=== PATIENT | male | born 1970 | race Asian ===

== ENCOUNTER 2024-02-15 16:54 | Inpatient (IN) | payer MEDICAID ==
[~2024-02-15] VITALS: Ht 162.6 cm; Wt 88.2 kg
[2024-02-15] MEDS ORDERED: COLC-3 PO (17:10)
[2024-02-15] MEDS ORDERED: ATOR10TA PO (17:10)
[2024-02-15] MEDS ORDERED: SACU1TAB7 PO (17:10)
[2024-02-15] MEDS ORDERED: ALLO-97 PO (17:10)
[2024-02-15] MEDS ORDERED: DULA3PEN SQ (17:10)
[2024-02-15] MEDS ORDERED: METO-325 PO (17:10)
[2024-02-15] MEDS ORDERED: LISI-893 PO (17:10)
[2024-02-15] MEDS ORDERED: ISOS30TA92 PO (17:10)
[2024-02-15] MEDS ORDERED: METF-1211 PO (17:10)
[2024-02-15] MEDS ORDERED: INSU100I26 SQ (17:10)
[2024-02-15] MEDS: METOPROLOL TARTRATE 5 MG/5 ML VIAL IVP SCH (17:29)
[2024-02-15] MEDS: ASPIRIN 325 MG TABLET PO ONE (17:29)
[2024-02-15] MEDS: NITROGLYCERIN 0.4 MG SUBLINGUAL TABLET #25 SL ONE (17:30)
[2024-02-15 18:10] LABS: CALCIUM, TOTAL 8.6 mg/dL (8.8-10.5); CREATININE 2.01 mg/dL (0.60-1.30)
[2024-02-15 18:12] LABS: BASOPHILS % (AUTO) 0.4 % (0.0-2.0); EOSINOPHILS % (AUTO) 5.1 % (1.0-6.0); HEMATOCRIT 47.1 % (41-53); HEMOGLOBIN 16.2 g/dL (13.5-17.5); LYMPHOCYTES # (AUTO) 1.9 K/uL (1.0-4.8); LYMPHOCYTES % (AUTO) 33.8 % (22.0-44.0); MEAN CORPUSCULAR HEMOGLOBIN 28.3 pg (26.0-34.0); MEAN CORPUSCULAR HGB CONC 34.5 G/dL (31.0-37.0); MEAN CORPUSCULAR VOLUME 82 fL (80-100); MONOCYTES # (AUTO) 0.4 K/uL (0.1-1.0); MONOCYTES % (AUTO) 7.4 % (2.0-9.0); NEUTROPHILS % (AUTO) 53.3 % (40.0-70.0); PLATELET COUNT (AUTO) 234 K/uL (150-450); RED BLOOD CELL COUNT(AUTO) 5.75 MIL/uL (4.50-5.90); RED CELL DISTRIBUTION WIDTH 15.4 % (11.5-14.5); WHITE BLOOD COUNT (AUTO) 5.6 K/uL (4.5-11.0)
[2024-02-15 18:18] LABS: INR 0.9 (0.9-1.1); PROTHROMBIN TIME 9.3 SEC (9.4-11.6)
[2024-02-15 18:19] LABS: TROPONIN I-HIGH SENSITIVITY 14 ng/L (<76)
[2024-02-15] MEDS ORDERED: ONDANSETRON HCL 4 MG/2 ML VIAL IVP PRN (19:15)
[2024-02-15] MEDS: AmLODIPine BESYLATE 10 MG TABLET PO ONE (19:20)
[2024-02-15] MEDS: NITROGLYCERIN 2% (1 GM=INCH) OINTMENT PACKET TP ONE (19:21)
[2024-02-15] MEDS: NITROGLYCERIN 2% (1 GM=INCH) OINTMENT PACKET TP SCH ×2 (20:05→23:08)
[2024-02-15] MEDS: LABETALOL HCL 100 MG TABLET PO SCH (20:24)
[2024-02-15] MEDS: HydrALAZINE HCL 20 MG/ML VIAL IVP PRN (20:34)
[2024-02-15 21:32] LABS: BASOPHILS % (AUTO) 0.4 % (0.0-2.0); EOSINOPHILS % (AUTO) 4.8 % (1.0-6.0); HEMOGLOBIN 14.7 g/dL (13.5-17.5); LYMPHOCYTES # (AUTO) 1.9 K/uL (1.0-4.8); LYMPHOCYTES % (AUTO) 27.8 % (22.0-44.0); MEAN CORPUSCULAR HEMOGLOBIN 27.9 pg (26.0-34.0); MEAN CORPUSCULAR HGB CONC 34.2 G/dL (31.0-37.0); MEAN CORPUSCULAR VOLUME 82 fL (80-100); MONOCYTES # (AUTO) 0.6 K/uL (0.1-1.0); MONOCYTES % (AUTO) 7.9 % (2.0-9.0); NEUTROPHILS # (AUTO) 4.1 K/uL (1.8-7.7); NEUTROPHILS % (AUTO) 59.1 % (40.0-70.0); PLATELET COUNT (AUTO) 245 K/uL (150-450); RED BLOOD CELL COUNT(AUTO) 5.28 MIL/uL (4.50-5.90)
[2024-02-15 21:38] LABS: CALCIUM, TOTAL 8.1 mg/dL (8.8-10.5); CREATININE 1.73 mg/dL (0.60-1.30); POTASSIUM 3.1 mmol/L (3.5-5.1)
[2024-02-15 21:49] LABS: TROPONIN I-HIGH SENSITIVITY 11 ng/L (<76)
[2024-02-15] MEDS ORDERED: DEXTROSE 50%-WATER 25 GM/50 ML SYRINGE IVP PRN (22:45)
[2024-02-15] MEDS: HEPARIN SODIUM,PORCINE 5,000 UNITS/ML VIAL SQ SCH (23:08)
[2024-02-15] MEDS: ATORVASTATIN CALCIUM 40 MG TABLET PO ONE (23:37)
[2024-02-16] VITALS (7 sets, daily range): BP systolic 109–163; BP diastolic 76–95; PULSE 84–93; RESP 18; TEMP 97.5–98; O2SAT 94–98
[2024-02-16] MEDS: ACETAMINOPHEN 325 MG TABLET PO PRN (06:15)
[2024-02-16] MEDS: INSULIN LISPRO 100 UNITS/ML SQ PRN (06:17)
[2024-02-16 07:30] LABS: PH,URINE DRUG SCREEN 6.5 (5.0-8.0)
[2024-02-16 07:36] LABS: BASOPHILS % (AUTO) 0.5 % (0.0-2.0); EOSINOPHILS % (AUTO) 4.7 % (1.0-6.0); HEMOGLOBIN 13.7 g/dL (13.5-17.5); LYMPHOCYTES # (AUTO) 1.4 K/uL (1.0-4.8); LYMPHOCYTES % (AUTO) 24.8 % (22.0-44.0); MEAN CORPUSCULAR HEMOGLOBIN 28.4 pg (26.0-34.0); MEAN CORPUSCULAR HGB CONC 35.2 G/dL (31.0-37.0); MEAN CORPUSCULAR VOLUME 81 fL (80-100); MONOCYTES # (AUTO) 0.4 K/uL (0.1-1.0); MONOCYTES % (AUTO) 7.4 % (2.0-9.0); NEUTROPHILS # (AUTO) 3.5 K/uL (1.8-7.7); NEUTROPHILS % (AUTO) 62.6 % (40.0-70.0); PLATELET COUNT (AUTO) 220 K/uL (150-450); RED BLOOD CELL COUNT(AUTO) 4.83 MIL/uL (4.50-5.90); RED CELL DISTRIBUTION WIDTH 15.3 % (11.5-14.5); WHITE BLOOD COUNT (AUTO) 5.7 K/uL (4.5-11.0)
[2024-02-16 07:38] LABS: ALCOHOL, URINE DRUG SCREEN NEGATIVE (NEGATIVE); AMPHET/METH SCREEN,URINE NEGATIVE (NEGATIVE); BARBITURATE SCREEN, URINE NEGATIVE (NEGATIVE); BENZODIAZEPINES SCREEN,URINE NEGATIVE (NEGATIVE); CANNABINOID SCREEN,URINE NEGATIVE (NEGATIVE); COCAINE SCREEN,URINE NEGATIVE (NEGATIVE); METHADONE SCREEN, URINE NEGATIVE (NEGATIVE); OPIATE SCREEN,URINE NEGATIVE (NEGATIVE); PHENCYCLIDINE SCREEN,URINE NEGATIVE (NEGATIVE)
[2024-02-16 07:48] LABS: CREATININE 1.68 mg/dL (0.60-1.30); MAGNESIUM 1.9 mg/dL (1.80-2.40)
[2024-02-16 08:03] LABS: POTASSIUM 2.8 mmol/L (3.5-5.1)
[2024-02-16 08:10] LABS: PROTEIN,URINE RANDOM 1125 mg/dL (0-11.9)
[2024-02-16] MEDS: POTASSIUM CHLORIDE 10 MEQ ER TABLET PO ONE ×3 (09:26→23:57)
[2024-02-16] MEDS: ISOSORBIDE MONONITRATE 30 MG ER TABLET PO SCH (11:47)
[2024-02-16 13:47] LABS: TROPONIN I-HIGH SENSITIVITY 10 ng/L (<76)
[2024-02-16 17:17] LABS: POTASSIUM,URINE RANDOM 19 mmol/L (12-75); SODIUM,URINE RANDOM 42 mmol/l (20-110)
[2024-02-16 17:35] LABS: GLUCOMETER DEV NAME(LOC) 5N.2C; GLUCOSE,POINT OF CARE 209 MG/DL (70-110)
[2024-02-16 17:35] LABS: GLUCOMETER DEV NAME(LOC) 5N.2C; GLUCOSE,POINT OF CARE 263 MG/DL (70-110)
[2024-02-16 17:35] LABS: GLUCOMETER DEV NAME(LOC) 5N.2C; GLUCOSE,POINT OF CARE 283 MG/DL (70-110)
[2024-02-16 17:57] LABS: PROTEIN,URINE RANDOM 857 mg/dL (0-11.9)
[2024-02-16] MEDS: CARVEDILOL 12.5 MG TABLET PO SCH (20:29)
[2024-02-16] MEDS: ATORVASTATIN CALCIUM 40 MG TABLET PO SCH (20:30)
[2024-02-16] MEDS: SACUBITRIL/VALSARTAN 49-51 MG TABLET PO SCH (20:30)
[2024-02-16] MEDS: ASPIRIN 81 MG CHEWABLE TABLET PO SCH (20:31)
[2024-02-16] MEDS: INSULIN GLARGINE,HUM.REC.ANLOG 100 UNITS/ML SQ SCH (20:33)
[2024-02-17] VITALS (8 sets, daily range): BP systolic 138–164; BP diastolic 85–105; PULSE 85–94; RESP 17–18; TEMP 97.8–98.4; O2SAT 95–98
[2024-02-17 05:06] LABS: GLUCOMETER DEV NAME(LOC) 5S.1C; GLUCOSE,POINT OF CARE 293 MG/DL (70-110)
[2024-02-17 07:20] LABS: HEMOGLOBIN A1C 10.3 % (3.8-5.6)
[2024-02-17 07:39] LABS: CREATININE 1.85 mg/dL (0.60-1.30); POTASSIUM 3.3 mmol/L (3.5-5.1)
[2024-02-17 07:43] LABS: CALCIUM, TOTAL 8.6 mg/dL (8.8-10.5)
[2024-02-17 07:46] LABS: GLUCOMETER DEV NAME(LOC) 5S.1C; GLUCOSE,POINT OF CARE 218 MG/DL (70-110)
[2024-02-17] MEDS: HYDROmorphone HCL 2 MG/ML SYRINGE IVP PRN ×3 (07:49→19:05)
[2024-02-17] MEDS: OxyCODONE HCL/ACETAMINOPHEN 5-325 MG TABLET PO PRN (08:19)
[2024-02-17] MEDS: DAPAGLIFLOZIN PROPANEDIOL 5 MG TABLET PO SCH (08:19)
[2024-02-17] MEDS: CARVEDILOL 12.5 MG TABLET PO ONE (11:46)
[2024-02-17] MEDS: POTASSIUM CHLORIDE 20 MEQ ER TABLET PO ONE (14:33)
[2024-02-17 15:46] LABS: GLUCOMETER DEV NAME(LOC) 5S.1C; GLUCOSE,POINT OF CARE 214 MG/DL (70-110)
[2024-02-17] MEDS ORDERED: OxyCODONE HCL/ACETAMINOPHEN 5-325 MG TABLET PO PRN (18:53)
[2024-02-17 20:01] LABS: GLUCOMETER DEV NAME(LOC) 5S.1C; GLUCOSE,POINT OF CARE 191 MG/DL (70-110)
[2024-02-17] MEDS: CARVEDILOL 25 MG TABLET PO SCH (20:25)
[2024-02-17] MEDS: INSULIN GLARGINE,HUM.REC.ANLOG 100 UNITS/ML SQ SCH (20:27)
[2024-02-18 00:32] VITALS: BP 143/95; PULSE 91; RESP 17; TEMP 97.9; O2SAT 95
[2024-02-18 03:31] LABS: GLUCOMETER DEV NAME(LOC) 5N.2C; GLUCOSE,POINT OF CARE 185 MG/DL (70-110)
[2024-02-18 04:14] VITALS: BP 140/81; PULSE 89; RESP 18; TEMP 97.6; O2SAT 96
[2024-02-18 07:07] LABS: BASOPHILS % (AUTO) 0.5 % (0.0-2.0); EOSINOPHILS % (AUTO) 7.3 % (1.0-6.0); HEMATOCRIT 38.3 % (41-53); LYMPHOCYTES # (AUTO) 1.4 K/uL (1.0-4.8); MEAN CORPUSCULAR HEMOGLOBIN 28.2 pg (26.0-34.0); MEAN CORPUSCULAR HGB CONC 33.9 G/dL (31.0-37.0); MEAN CORPUSCULAR VOLUME 83 fL (80-100); MONOCYTES # (AUTO) 0.4 K/uL (0.1-1.0); MONOCYTES % (AUTO) 9.2 % (2.0-9.0); NEUTROPHILS # (AUTO) 1.9 K/uL (1.8-7.7); PLATELET COUNT (AUTO) 194 K/uL (150-450); RED BLOOD CELL COUNT(AUTO) 4.62 MIL/uL (4.50-5.90); RED CELL DISTRIBUTION WIDTH 15.2 % (11.5-14.5)
[2024-02-18 07:08] LABS: CALCIUM, TOTAL 8.3 mg/dL (8.8-10.5); CREATININE 1.83 mg/dL (0.60-1.30); MAGNESIUM 2.2 mg/dL (1.80-2.40); POTASSIUM 3.3 mmol/L (3.5-5.1)
[2024-02-18] MEDS: ISOSORBIDE MONONITRATE 60 MG ER TABLET PO SCH (08:14)
[2024-02-18 08:26] VITALS: BP 167/94; PULSE 92; RESP 18; TEMP 97.7; O2SAT 97
[2024-02-18 11:46] LABS: GLUCOMETER DEV NAME(LOC) 5S.1C; GLUCOSE,POINT OF CARE 209 MG/DL (70-110)
[2024-02-18 11:50] LABS: GLUCOMETER DEV NAME(LOC) 5N.2C; GLUCOSE,POINT OF CARE 132 MG/DL (70-110)
[2024-02-18] MEDS: POTASSIUM CHLORIDE 20 MEQ ER TABLET PO ONE (11:54)
[2024-02-18 11:55] VITALS: BP 152/100; PULSE 86; RESP 18; TEMP 97.2; O2SAT 96
[2024-02-18 12:06] LABS: IGA (IFE) 299 mg/dL (90-386); IGM (IMMUNOFIXATION) 148 mg/dL (20-172)
[2024-02-18] MEDS ORDERED: DAPA5TAB6 PO (14:30)
[2024-02-18] MEDS ORDERED: ATOR40TA71 PO (14:30)
[2024-02-18] MEDS ORDERED: ASPI-1450 PO (14:30)
[2024-02-18] MEDS ORDERED: ISOS60TA77 PO (14:30)
[2024-02-18] MEDS ORDERED: CARV25 PO (14:30)
[2024-02-19 01:07] LABS: CREATININE, URINE (mALB) 75.5 mg/dL (Not Estab.)
[2024-02-20 07:06] LABS: ALBUMIN URINE (ELP) 62.6 %; ALPHA-1 URINE (ELP) 6.7 %; TOTAL PROTEIN URINE 907.3 mg/dL (Not Estab.)
== END 2024-02-18 16:00 | disposition home or self-care (01) | DRG 198 ==
LOC: EMS 17:02 → EDH 19:16 → 5S 02-16 04:03
PROVIDERS: ADMIT Internal Medicine; ATTEND Internal Medicine
DX: I25.110 Atherosclerotic heart disease of native coronary artery with unstable angina pectoris (principal); N17.0 Acute kidney failure with tubular necrosis; I50.22 Chronic systolic (congestive) heart failure; E11.22 Type 2 diabetes mellitus with diabetic chronic kidney disease; I13.0 Hypertensive heart and chronic kidney disease with heart failure and stage 1 through stage 4 chronic kidney disease, or unspecified chronic kidney disease; I16.1 Hypertensive emergency; E87.6 Hypokalemia; E11.65 Type 2 diabetes mellitus with hyperglycemia; N18.32 Chronic kidney disease, stage 3b; M10.9 Gout, unspecified; E78.5 Hyperlipidemia, unspecified; Z79.4 Long term (current) use of insulin; Z80.1 Family history of malignant neoplasm of trachea, bronchus and lung; Z82.49 Family history of ischemic heart disease and other diseases of the circulatory system; Z83.3 Family history of diabetes mellitus; Z86.73 Personal history of transient ischemic attack (TIA), and cerebral infarction without residual deficits; Z88.6 Allergy status to analgesic agent
CPT/HCPCS: 71045; 80048; 80307; 82043; 82570; 82784; 82962; 83036; 83735; 83880; 83935; 84132; 84133; 84156; 84166; 84300; 84484; 85025; 85610; 85730; 86334; 93005; 93306; 99285; G0378; J0360; J1170; J1644; J1815; J3490; 36415-L1; 36415-TC